=== PATIENT | male | born 1950 | race Caucasian/White ===

== ENCOUNTER 2016-06-20 11:31 | Emergency (ER) | payer OTHER, MEDICAID ==
[~2016-06-20] VITALS: Ht 152.4 cm; Wt 110.7 kg
[~2016-06-20 11:31] MED LIST: ECO81 PO; GLIMEPIRIDE4 M1 PO; LISINOPRIL10 MG PO; METFORMIN500 M1 PO; NAPROXEN500 MG PO; SIMVASTATIN10 M1 PO
[2016-06-20 11:37] VITALS: BP 168/93
== END 2016-06-20 16:47 | disposition home or self-care (01) ==
LOC: ED 11:31
DX: L03.211 Cellulitis of face (principal); E11.65 Type 2 diabetes mellitus with hyperglycemia; I10 Essential (primary) hypertension; E78.5 Hyperlipidemia, unspecified; M19.90 Unspecified osteoarthritis, unspecified site; Z79.84 Long term (current) use of oral hypoglycemic drugs
CPT/HCPCS: 82962

== ENCOUNTER 2016-06-22 09:17 | Inpatient (IN) | payer OTHER, MEDICAID ==
[~2016-06-22] VITALS: Ht 175.3 cm; Wt 108.5 kg
[2016-06-22 11:37] LABS: PLATELET COUNT 239 x10^3mcL (130-400)
[2016-06-22 11:39] LABS: BASOPHIL % 0 % (0-2)
[2016-06-22 11:59] LABS: CALCIUM 9.3 mg/dL (8.5-10.1); CARBON DIOXIDE 26.1 mmol/L (21-32); CREATININE SERUM 1.3 mg/dL (0.7-1.3); POTASSIUM SERUM 4.8 mmol/L (3.5-5.1)
[2016-06-22 12:04] LABS: ALBUMIN 3.7 g/dL (3.4-5.0); BILIRUBIN TOTAL 0.4 mg/dL (0.20-1.00); TOTAL PROTEIN, SERUM 7.6 g/dL (6.4-8.2)
[2016-06-22] MEDS ORDERED: METFORMIN HCL1000 MG PO (14:00)
[2016-06-22] MEDS ORDERED: SIMVASTATIN10 M1 PO (14:01)
[2016-06-22] MEDS ORDERED: EC NAPROSYN500 MG PO (14:02)
[2016-06-22] MEDS ORDERED: LISINOPRIL10 MG PO (14:02)
[2016-06-22] MEDS ORDERED: AMARYL4 MG PO (14:03)
[2016-06-22] MEDS ORDERED: ALAWAY10 ML (14:04)
[2016-06-22 14:10] LABS: CHOLESTEROL/HDL RATIO 3.1; T3 TOTAL 0.8 ng/mL
[2016-06-22 15:13] VITALS: BP 132/77
[2016-06-22 15:22] LABS: FREE T4 1.09 ng/dL (0.76-1.46); FREE THYROXINE INDEX 2.7 ug/dL (1.4-4.5); T4(THYROXINE) 7.2 ug/dL (4.7-13.3)
[2016-06-22 15:40] LABS: microscopic required? NO
[2016-06-22 16:28] LABS: UA SPECIFIC GRAVITY 1.015 (1.005-1.035); urine erythrocyte NEGATIVE (NEGATIVE)
[2016-06-22 17:32] VITALS: BP 138/82
[2016-06-22 21:10] VITALS: BP 128/73
[2016-06-23 06:16] VITALS: BP 135/77
[2016-06-23 06:41] LABS: BASOPHIL % 0.2 % (0-2); PLATELET COUNT 233 x10^3mcL (130-400); RED CELL DISTRIBUTION WIDTH 14.3 % (11.5-14.5)
[2016-06-23 06:57] LABS: CALCIUM 8.5 mg/dL (8.5-10.1); CARBON DIOXIDE 25.3 mmol/L (21-32); CHLORIDE SERUM 103 mmol/L (98-107); GFR1 > 60 mL/min; GLUCOSE SERUM 151 mg/dL (74-106); MAGNESIUM 1.8 mg/dL (1.8-2.4); PHOSPHOROUS 3.2 mg/dL (2.5-4.9); POTASSIUM SERUM 4.3 mmol/L (3.5-5.1); SODIUM SERUM 138 mmol/L (136-145)
[2016-06-23 09:17] VITALS: BP 137/81
[2016-06-23 10:12] VITALS: Ht 175.3 cm; Wt 108.5 kg
[2016-06-23 13:50] VITALS: BP 141/80
[2016-06-23 17:15] VITALS: BP 141/81
[2016-06-23 21:20] VITALS: BP 107/58
[2016-06-24 05:35] VITALS: BP 121/70
[2016-06-24 06:06] LABS: BASOPHIL % 0.3 % (0-2); PLATELET COUNT 230 x10^3mcL (130-400); RED CELL DISTRIBUTION WIDTH 13.9 % (11.5-14.5)
[2016-06-24 06:12] LABS: ALBUMIN 3.1 g/dL (3.4-5.0); CALCIUM 8.6 mg/dL (8.5-10.1); CARBON DIOXIDE 24.7 mmol/L (21-32); CHLORIDE SERUM 104 mmol/L (98-107); CREATININE SERUM 0.9 mg/dL (0.7-1.3); GFR1 > 60 mL/min; GLUCOSE SERUM 195 mg/dL (74-106); POTASSIUM SERUM 4.2 mmol/L (3.5-5.1); SODIUM SERUM 137 mmol/L (136-145)
[2016-06-24 09:39] VITALS: BP 124/79
[2016-06-24 18:48] VITALS: BP 151/85
[2016-06-24 21:46] VITALS: BP 146/89
[2016-06-25 05:35] VITALS: BP 135/73
[2016-06-25 06:54] LABS: BASOPHIL % 0.2 % (0-2); PLATELET COUNT 249 x10^3mcL (130-400)
[2016-06-25 06:57] LABS: RED CELL DISTRIBUTION WIDTH 14.6 % (11.5-14.5)
[2016-06-25 07:06] LABS: CALCIUM 8.7 mg/dL (8.5-10.1); CARBON DIOXIDE 24.9 mmol/L (21-32); CHLORIDE SERUM 107 mmol/L (98-107); CREATININE SERUM 0.9 mg/dL (0.7-1.3); GFR1 > 60 mL/min; GLUCOSE SERUM 148 mg/dL (74-106); POTASSIUM SERUM 4.2 mmol/L (3.5-5.1); SODIUM SERUM 141 mmol/L (136-145)
[2016-06-25 07:09] LABS: ALBUMIN 3.1 g/dL (3.4-5.0)
[2016-06-25 08:58] VITALS: BP 131/76
[2016-06-25 13:04] VITALS: BP 152/82
[2016-06-25] MEDS ORDERED: CLINDAMYCIN HC300 MG PO (15:51)
[2016-06-25] MEDS ORDERED: LAC PO (15:52)
[2016-06-25 16:18] VITALS: BP 148/79
[2016-06-25 16:24] VITALS: BP 148/79
== END 2016-06-25 17:30 | disposition home or self-care (01) | DRG 602 ==
LOC: ED 09:17 → DU 13:34 → MU 13:34 → DU 14:51 → MU 06-23 15:53
PROVIDERS: Emergency Medicine; Family Medicine; ADMIT Family Medicine
DX: L03.213 Periorbital cellulitis (principal); N17.0 Acute kidney failure with tubular necrosis; E44.0 Moderate protein-calorie malnutrition; J32.0 Chronic maxillary sinusitis; D64.9 Anemia, unspecified; E11.65 Type 2 diabetes mellitus with hyperglycemia; I16.0 Hypertensive urgency; E78.5 Hyperlipidemia, unspecified; K42.9 Umbilical hernia without obstruction or gangrene; M17.11 Unilateral primary osteoarthritis, right knee; Z79.82 Long term (current) use of aspirin; Z79.84 Long term (current) use of oral hypoglycemic drugs; Z68.35 Body mass index [BMI] 35.0-35.9, adult
CPT/HCPCS: 82962; 83880; 84439; J1956; J2920; J3490; J7030; Q0092; Q9967

== ENCOUNTER 2019-06-03 18:35 | Inpatient (IN) | payer OTHER, MEDICAID ==
[~2019-06-03] VITALS: Ht 175.3 cm; Wt 103.6 kg
[~2019-06-03 18:35] MED LIST changes: +ALAWAY10 ML; +AMARYL4 MG PO; +CLINDAMYCIN HC300 MG PO; +EC NAPROSYN500 MG PO; +LAC PO; +METFORMIN HCL1000 MG PO
--- NOTE | 2019-06-03 19:37 | NUR ---
PT CAME TO ED CO VOMITING SINCE SATURDAY. PT STS HE HAS NO OTHER SYMPTOMS. PT PRESENTED TO THE ED W/LOW BLOOD SUGAR. PT PROVIDED A SANDWICH AND JUICES. WILL CONTINUE TO MONITOR. FRIEND AT BEDSIDE. NO S/S OF DISTRESS. RESP E/U.
[2019-06-03 20:48] LABS: BASOPHIL % 0.1 % (0-2); PLATELET COUNT 212 x10^3mcL (130-400); T3 TOTAL 0.86 ng/mL
[2019-06-03 20:49] LABS: RED CELL DISTRIBUTION WIDTH 15.8 % (11.5-14.5)
[2019-06-03 21:08] LABS: CK-MB 3.9 ng/mL (0-3.6)
[2019-06-03 21:11] LABS: ALBUMIN 3.4 g/dL (3.4-5.0); ALKALINE PHOSPHATASE 58 U/L (46-116); ALT/SGPT 30 U/L (16-63); AST/SGOT 36 U/L (15-37); BILIRUBIN TOTAL 0.8 mg/dL (0.20-1.00); C REACTIVE PROTEIN 5.9 mg/dL (<=0.9); CALCIUM 7.8 mg/dL (8.5-10.1); CARBON DIOXIDE 20.8 mmol/L (21-32); CHLORIDE SERUM 97 mmol/L (98-107); GLUCOSE SERUM 60 mg/dL (74-106); POTASSIUM SERUM 4.3 mmol/L (3.5-5.1); SODIUM SERUM 135 mmol/L (136-145); TOTAL PROTEIN, SERUM 7.4 g/dL (6.4-8.2)
[2019-06-03 21:33] LABS: FREE T4 1.31 ng/dL (0.76-1.46); FREE THYROXINE INDEX 3.2 ug/dL (1.4-4.5)
--- NOTE | 2019-06-03 21:36 | NUR ---
PT RESTING COMFORTABLY ON GURNEY. BREATHING EVEN UNLABORED. NO NEW EPISODES OF VOMITING.
[2019-06-03 21:41] LABS: CREATININE SERUM 7.8 mg/dL (0.7-1.3); GFR1 7 mL/min
[2019-06-03 21:57] LABS: ERYTHROCYTE SED RATE 31 mm/hr (0-20)
--- NOTE | 2019-06-03 22:16 | NUR ---
REPORT CALLED TO SANTO LUU TO ASSUME CARE OF PT.
--- NOTE | 2019-06-03 22:26 | NUR ---
RECEIVED PT FROM ED VIA [facility] ACCOMPANIED BY RN, EMT AND NIECE. PT ABLE TO AMBULATE TO BED WITH SLOW STEADY GAIT. AOX4, URDU SPEAKING. C/O 04/03 HEADACHE. WILL MEDICATE PER EMAR. EVEN AND UNLABORED RESPIRATIONS ON RA. TELE# 4 PLACED, READING ST 102 WITH BBB. DENIES ANY CHEST PAIN/PRESSURE. IV PATENT AND INTACT RUNNING IVF BOLUS FROM ED. NO C/O N/V OR ABD PAIN AT THIS TIME. C/O DIARRHEA. C/O DIFFICULTY URINATING, WORKMAN IN PLACE, VERY MINIMAL URINE OUTPUT NOTED. C/O MILD GENERALIZED WEAKNESS. ORIENTED TO ROOM AND SURROUNDINGS. INSTRUCTED ON USE OF CALL LIGHT WHEN IN NEED OF ASSISTANCE. BED IN LOWEST POSITION. SIDE RAILS UPX2. CALL LIGHT WITHIN REACH. WILL CONTINUE TO MONITOR.
--- NOTE | 2019-06-03 22:27 | NUR ---
PT TRANSFERRED TO TELE FLOOR ACCOMPANIED BY NURSE AND EMT. NO S/S OF DISTRESS.R FAUSTINO E/U. PT CONNECTED TO MONITOR DURING TRANSFER. IV SITE PATENT, NO S/S OF INFILTRATION.
[2019-06-03 22:28] LABS: UA SPECIFIC GRAVITY >=1.030 (1.005-1.035); microscopic required? YES; urine erythrocyte 3+ (NEGATIVE)
[2019-06-03 23:00] VITALS: BP 121/56
--- NOTE | 2019-06-04 00:09 | NUR ---
BLOOD SUGAR CHECKED: 39, REPEATED 41. D50 ADMINISTER PER PROTOCOL. APPLE JUICE PROVIDED. RECHECKED: 138. PT AOX4. NO ACUTE DISTRESS NOTED. INFLUENZA AND PNEUMOCOCCAL VACCINE ADMINISTERED. C/O HEADACHE MEDICATED PER EMAR. PT TOLERATED WELL. MD MADE AWARE. ORDERS RECEIVED: CHANGE IVF TO D5NS AT 70ML/HR. WILL START IVF ONCE VERIFIED. BED IN LOWEST POSITION. SIDE RAILS UPX2. CALL LIGHT WITHIN REACH. WILL CONTINUE TO MONITOR.
[2019-06-04 05:07] LABS: BASOPHIL % 0.2 % (0-2); PLATELET COUNT 204 x10^3mcL (130-400)
[2019-06-04 05:09] LABS: RED CELL DISTRIBUTION WIDTH 15.4 % (11.5-14.5)
[2019-06-04 05:29] VITALS: BP 111/58
[2019-06-04 05:33] LABS: CALCIUM 7.2 mg/dL (8.5-10.1); CARBON DIOXIDE 22.9 mmol/L (21-32); POTASSIUM SERUM 4.1 mmol/L (3.5-5.1)
--- NOTE | 2019-06-04 06:25 | NUR ---
MADE AWARE OF CRITICAL LABS: GLUCOSE: 51, BUN: 93 CREAT: 8.0. BLOOD SUGAR CHECKED: 43, 39. D50 IVP ADMINISTERED PER PROTOCOL, SNACKS PROVIDED: RECHECKED BS: 131. C/O HEARTBURN, VOMITED X1. MADE AWARE OF LABS VALUES, NO NEW ORDER RECEIVED. PT AOX4. IV PATENT AND INTACT RUNNING D5NS @70. RESTED IN INTERVALS THROUGHOUT THE SHIFT. ALL NEEDS TENDED TO AND MET. ALL SCHEDULED MEDICATIONS GIVEN. ON TELE# [address] 95 WITH BBB. C/O HEARTBURN MEDICATED PER EMAR. WORKMAN IN PLACE, PATENT DRAINING YELLOW URINE VIA GRAVITY, 35ML OUTPUT NOTED. BED IN LOWEST POSITION. SIDE RAILS UPX2. CALL LIGHT WITHIN REACH. WILL ENDORSE TO ONCOMING SHIFT.
--- NOTE | 2019-06-04 07:30 | NUR ---
RECEIVED PATIENT IN BED, AWAKE ALERT AND ORIENTED SPEAKS URUGUAYAN AND A LITTLE GRENADIAN. IVF INFUSING WELL TO LEFT A/C. TELE 4 NSR WITH BBB. RESP EVEN AND UNLABORED, LUNGS CLEAR. R.T. PROTOCOL. PATIENT'S ABD IS VERY LARGE ROUND AND FIRM. BOWEL SOUNDS ACTIVE, LBM WAS YESTERDAY PER PATIENT. PATIENT REFUSING BREAKFAST AT THIS TIME PER PATIENT HE IS NOT HUNGRY. WORKMAN NOTED TO DRAINAGE WITH APPROX 30ML OF YELLOW URINE IN BAG. NO EDEMA NOTED, PULSES PALABLE. MILD GENERALIZED WEAKNESS NOTED.
[2019-06-04 07:46] VITALS: BP 123/67
--- NOTE | 2019-06-04 11:05 | NUR ---
PATIENT IS IN BED, APPEARS LETHARGIC BUT AROUSEABLE. FSBS DONE AND WAS 34, REPEATED AND WAS 37. 1 AMP OF D50 GIVEN BY JOLLY LUU. STAT BLOOD GLUCOSE ORDERED. JOLLY LUU TO NOTIFY DR BELLE. PATIENT HAS D5 NS INFUSING AT 70ML/HR. WILL RECHECK FSBS IN 10-15 MINS. PATIENT APPEARS MORE ALERT SPEECH CLEARER.
--- NOTE | 2019-06-04 11:21 | NUR ---
PATIENT'S PLAN OF CARE WAS DISCUSSED AND REVIEWED WITH POULTRY CUTTER:LATRELL TORRE. I HAVE REVIEWED THE DATA COLLECTION BY POULTRY CUTTER (NAME):LATRELL TORRE. ENTERED ON (DATE/TIME):06/04/19. I CONCUR WITH THE DATA AND ANY EXCEPTIONS OR COMMENTS ARE LISTED BELOW:
--- NOTE | 2019-06-04 11:33 | NUR ---
REPEAT FSBS 15 MINS AFTER 1 AMP OF D50 WAS GIVEN IS NOW 150. DR BELLE TO BE NOTIFIED BY JOLLY LUU. LAB AT BEDSIDE TO DRAW SERUM GLUCOSE AT THIS TIME. WILL CONTINUE TO MONITOR.
[2019-06-04 11:48] VITALS: BP 104/62
--- NOTE | 2019-06-04 11:51 | NUR ---
D10 IVF AT 70ML/HR STARTED AT THIS TIME ORDERED. PATIENT MORE AWAKE AND ALERT, AROUSES EASILY TO NAME. WILL CONTINUE TO MONITOR.
[2019-06-04 15:26] VITALS: BP 141/70
--- NOTE | 2019-06-04 16:45 | NUR ---
PATIENT'S FSBS 50 RECHECK WAS 53. 1 AMP OF D50 BY DON LUU ORDERED. WILL MONITOR. STAT SERUM GLUCOSE ORDERED.
--- NOTE | 2019-06-04 17:26 | NUR ---
PATIENT CONTINUES TO FEEL NAUSEATED, REFUSES TRAYS, DO TO HAVING SMALL CLEAR EMESIS. ABD VERY FIRM AND DISTENDED. URINE OUTPUT <60. DR BELLE NOTIFIED AT THIS TIME OF PATIENT'S LOW FSBS'S AND OF URINE OUTPUT. VISITORS HAVE BEEN INTO VISIT. PATIENT HOB ELEVATED FOR ASPIRATION PRECAUTION.
--- NOTE | 2019-06-04 17:47 | NUR ---
REPEAT FSBS AFTER AMP OF D50 WAS GIVEN IS 115. PATIENT'S WORKMAN CATH EMPTIED AT THIS TIME WELL WITH 70ML YELLOW URINE OUT. PATIENT IS SITTING UP IN BED EATING THE PEACHES ON HIS DINNER TRAY. NO C/O PAIN OR DISCOMFORT. LAB WAS INTO DRAW SERUM GLUCOSE. WILL CONTINUE TO MONITOR.
--- NOTE | 2019-06-04 18:49 | NUR ---
DR ENGLISH HERE TO SEE PATIENT AND CLEARED PATIENT OF 5150 AT THIS TIME.
--- NOTE | 2019-06-04 19:25 | NUR ---
CARE ASSUMED FROM OUTGOING WALLCOVERING TEXTURER. PT RESTING COMFORTABLY IN BED. NO ACUTE DISTRESS NOTED. EVEN AND UNLABORED RESPIRATIONS ON RA. NO C/O SOB. ON TELE# 4 READING SR/ST WITH BBB. IV PATENT AND INTACT RUNNING D10 @70ML/HR. NO C/O PAIN AT THIS TIME. EMESIS BAG NEAR PT, PT C/O OCCASIONAL N/V AND ACID REFLUX/HEARTBURN. WORKMAN IN PLACE, PATENT DRAINING MINIMAL YELLOW URINE VIA GRAVITY. BED IN LOWEST POSITION. SIDE RAILS UPX2. CALL LIGHT WITHIN REACH. WILL CONTINUE TO MONITOR.
[2019-06-04 20:22] VITALS: BP 99/46
--- NOTE | 2019-06-04 20:45 | NUR ---
MADE AWARE, BS:34, RECHECKED 30. D50 IVP CHECKED. RECHECKED: 134. PT AWAKE, ALERT, SLIGHTLY LETHARGIC. DR. BELLE CALLED, UPDATED. RECEIVED ORDERS TO TX TO ICU DUE TO UNSTABLE BLOOD GLUCOSE.
--- NOTE | 2019-06-04 21:10 | NUR ---
RECEIVED PT FROM [facility]. PT TRANSFERRED TO ICU BED 4 WITH NO COMPLICATIONS. PT CONNCETED TO FULL PHILANTHROPY OFFICER/CONTINOUS PULSE OXIMETRY. VITALS READING: HR 92, NIBP 138/68 MAP 88, RR 18, SPO2 98%. PT SR WITH BBB ON MONITOR. PT IS A/OX4. ABLE TO FOLLOW COMMANDS. DENIES ANY AGUILAR/DIZZINESS. BREATHING IS E/U ON RA. LUNGS SOUND CLEAR TO TO BUL AND DIMIN TO BLL. SYMMETRICAL CHEST EXPANSION NOTED. PALPABLE PULSES X4 EXTREMITEIS. SKIN IS WARM AND DRY. LAC IV INTACT/SECURED, D10 INFUSING @ 70 ML/HR WITH NO S/S OF INFILTRATION NOTED. ABD IS SOFT/DISTENDED. BOWEL SOUNDS HYPOACTIVE X4 QUADRANTS. PT STS HE FELT NAUSEAS EARLIER TODAY, BUT DENIES ANY N/V AT THIS TIME. F/C INTACT/SECURED, DRAINING VIA GRAVITY WITH YELLOW COLORED URINE, POOR URINE OUTPUT NOTED. BED IN LOW POSITION. CALL LIGHT IN REACH. WILL CONT TO MONITOR
--- NOTE | 2019-06-04 21:10 | NUR ---
PT TRANFERRED TO ICU VIA BED. PT TOLERATED TRANSFER WELL. SCIENTIFIC ASSOCIATE REMOVED. REPORT GIVEN AND CARE ENDORSE TO PACK PULLER.
--- NOTE | 2019-06-04 22:30 | NUR ---
PT'S O2 SATURATION 91% ON RA. PT PLACED ON 2 LPM NC. SPO2 INCREASED TO 98%. WILL CONT TO MONITOR
[2019-06-04 23:05] VITALS: BP 131/62
--- NOTE | 2019-06-05 01:35 | NUR ---
BLOOD SUGAR CHECKED AND READ 56 AND 55. PT ASYMPTOMATIC. D50 ADMINISTERED PER EMAR.
--- NOTE | 2019-06-05 02:36 | NUR ---
BLOOD SUGAR CHECKED POST D50 ADMINISTRATION AND READ 109. WILL CONT TO MONITOR
[2019-06-05 03:02] VITALS: BP 122/66
--- NOTE | 2019-06-05 05:13 | NUR ---
BLOOD SUGAR 52. PT MEDICATED WITH D50 IVP PER EMAR. WILL CONT TO MONITOR.
[2019-06-05 05:32] LABS: BASOPHIL % 0.2 % (0-2); PLATELET COUNT 186 x10^3mcL (130-400)
[2019-06-05 05:36] LABS: RED CELL DISTRIBUTION WIDTH 16.1 % (11.5-14.5)
--- NOTE | 2019-06-05 05:52 | NUR ---
BLOOD SUGAR 129 POST D50 ADMINISTRATION. WILL CONT TO MONITOR
[2019-06-05 06:06] LABS: ALKALINE PHOSPHATASE 50 U/L (46-116); ALT/SGPT 23 U/L (16-63); AST/SGOT 21 U/L (15-37); BILIRUBIN TOTAL 0.53 mg/dL (0.20-1.00); CARBON DIOXIDE 21.7 mmol/L (21-32); CHLORIDE SERUM 99 mmol/L (98-107); GLUCOSE SERUM 64 mg/dL (74-106); PHOSPHOROUS 4.3 mg/dL (2.5-4.9); POTASSIUM SERUM 3.7 mmol/L (3.5-5.1); SODIUM SERUM 136 mmol/L (136-145); TOTAL PROTEIN, SERUM 6.5 g/dL (6.4-8.2)
[2019-06-05 06:18] LABS: ALBUMIN 2.6 g/dL (3.4-5.0); CREATININE SERUM 9.7 mg/dL (0.7-1.3); GFR1 6 mL/min
--- NOTE | 2019-06-05 07:05 | NUR ---
REPORT GIVEN TO BARBRA LUU FOR CONTINUITY OF CARE. ALL QUESTIONS/CONCERNS ADDRESSED. ENDORSING ALL CARE
[2019-06-05 07:25] VITALS: BP 111/63
--- NOTE | 2019-06-05 07:25 | NUR ---
PATIENT AWAKE AND ORIENTED TO PERSON, PLACE AND TIME. PATIENT DENIES NAUSEA/VOMITING, PAIN OR SHORTNESS OF BREATH AT THIS TIME. IVF D10 AT 70 ML/HR VIA IV SITE AT [facility]. TELE # 4 SHOWS NORMAL SINUS RHYTHMS WITH EPISODES OF SINUS TACHYCARDIA. HR IN 100S. WORKMAN CATH TO GRAVITY DRAINING SCANT AMOUNT OF YELLOW URINE IN THE TUBE. CALL LIGHT WITHIN REACH. SIDE RAILS UP X3. BED IS AT LOWEST POSITION.
--- NOTE | 2019-06-05 08:09 | NUR ---
PATIENT'S BEDSIDE GLUCOSE 64 AFTER EATING BREAKFAST. ADMINISTER 1 AMP D50 IVP. WILL REASSESS.
--- NOTE | 2019-06-05 08:30 | NUR ---
REASSESSED PATIENT'S BEDSIDE GLUCOSE AT 124. NO FURTHER INTERVENTION NEEDED. WILL CONTINUE TO MONITOR CLOSELY.
--- NOTE | 2019-06-05 09:10 | NUR ---
DR. ECKERT WAS AT BEDSIDE EXAMING THE PATIENT.
--- NOTE | 2019-06-05 09:25 | NUR ---
DR. SAENZ WAS AT BEDSIDE EXPLAINING THE CECIL CATHETER PLACEMENT TO THE PATIENT AND HIS NIECE, ALON GONZALEZ. CONCERNS WERE ADDRESSED AND DR. SAENZ OBTAINED THE CONSENT FOR CECIL CATH PLACEMENT.
--- NOTE | 2019-06-05 09:35 | NUR ---
IV SITE AT LAC LEAKING. THE HEPLOCK WAS REMOVED WITH CATH INTACT. NEW HEPLOCKS WERE INSERTED TO RIGHT WRIST WITH #22G AND LEFT WRIST WITH #20G.
--- NOTE | 2019-06-05 10:00 | NUR ---
DR. BELLE IS IN TO SEE THE PATIENT. UPDATE PROVIDED TO THE DOCTOR.
[2019-06-05 11:00] VITALS: BP 121/62
--- NOTE | 2019-06-05 14:35 | NUR ---
TELEPHONED DR Marquez'S CELL PHONE TO INQUIRE WHEN HE WOULD BE COMING TO PLACE HEMODIALYSIS CATHETER. MEDICAL STUDENT WHO ANSWERED HIS TELEPHONED SPOKE WITH HIM AND HE SAID HE WOULD COME TO PLACE THE CATHETER SHORTLY. I INFORMED MEDICAL STUDENT THAT I WOULD CALL DR Marquez BACK IF HE DID NOT ARRIVE WITHIN THE NEXT COUPLE OF HOURS (PATIENT'S BUN AND CREAT. IS ELEVATED AND PATIENT HAS PERIODS OF CONFUSION) TO OBTAIN AN ETA.
[2019-06-05 15:14] VITALS: BP 127/66
--- NOTE | 2019-06-05 15:58 | NUR ---
REPORT GIVEN TO ALON Kirby RN., AND ENDORSE CARE ACCORDINGLY.
--- NOTE | 2019-06-05 16:14 | NUR ---
PATIENT PLACED ON REGULAR DIET UNTIL BEDSIDE GLUCOSE IMPROVES. LAST BS GLUCOSE 58.
--- NOTE | 2019-06-05 16:29 | NUR ---
BS RECHECKED PER PROTOCOL, BS114 AT THIS TIME. PT ASYMPTOMATIC
--- NOTE | 2019-06-05 16:42 | NUR ---
SPOKE WITH DR BLANK REGARDING ETA. DR BLANK STATED HE WOULD NOT BE ABLE TO GET HER TO PLACE CATHETER UNTIL LATE THIS EVENING. TELEPHONED DR BELLE AND PROVIDED INFORMATION. OKAY TO PLACE CONSULT FOR WHOMEVER CAN PLACE CATHETER.
--- NOTE | 2019-06-05 18:02 | NUR ---
BS 106, PT EATING DINNER AT THIS TIME. PT C/O AGUILAR 09/01, MEDICATED PER EMAR. WILL CONT TO MONITOR
--- NOTE | 2019-06-05 19:00 | NUR ---
RECEIVED CHANGE OF [facility] REPORT FROM CLEMENTINA LUU. PT AOX4 ABLE TO MAKE NEEDS KNOWN. PT ON ROOM AIR, NO S/SX OF DISTRESS. PERIPHERAL IV TO RW AND LW INTACT, PATENT, DRESSING CDI. WORKMAN DRAINING VIA GRAVITY. PT BEDFAST WITH GENERALIZED WEAKNESS. SKIN INTACT. PT HAS UMBILICAL HERNIA. PT ON CONTINOUS CARDIAC AND PULSE OX MONITOR. WILL CONTINUE TO MONITOR.
--- NOTE | 2019-06-05 19:12 | NUR ---
CARE ENDORSED TO TOBI LUU. UPDATED ON PTS CURRENT STATUS. QUESTIONS ANSWERED
[2019-06-05 19:15] VITALS: BP 129/69
--- NOTE | 2019-06-05 20:30 | NUR ---
PT BLOOD SUGAR IS 56. GAVE 50ML OF D50 AND A CUP OF ORANGE JUICE. WILL CONTINUE TO MONITOR.
--- NOTE | 2019-06-05 20:46 | NUR ---
RECEIVED CHANGE OF [facility] REPORT FROM CLEMENTINA LUU. PT AOX4 ABLE TO MAKE NEEDS KNOWN. PT ON ROOM AIR, NO S/SX OF DISTRESS. PERIPHERAL IV TO RW AND LW INTACT, PATENT, DRESSING CDI. WORKMAN DRAINING VIA GRAVITY. PT BEDFAST WITH GENERALIZED WEAKNESS. SKIN INTACT. PT HAS UMBILICAL HERNIA. PT ON CONTINOUS CARDIAC AND PULSE OX MONITOR. WILL CONTINUE TO MONITOR.
--- NOTE | 2019-06-05 21:21 | NUR ---
RT AT BEDSIDE GIVING BREATHING TX.
--- NOTE | 2019-06-05 21:30 | NUR ---
DR. BLANK AT BEDSIDE PERFORMING ULTRASOUND GUIDED CECIL CATHETER PLACEMENT ON RIJ. HEALTH NAVIGATOR AND RN AT BEDSIDE. CONSENT SIGN, TIME-OUT BEFORE PROCEDURE DONE. NO S/SX OF DISTRESS FROM PATIENT. HEPARIN 5000 UNIT AND LIDOCAINE GIVEN TO PATIENT FOR THE PROCEDURE. POST PROCEDURE, PATIENT DISPLAY NO S/SX OF DISTRESS. WILL CONTINUE TO MONITOR.
--- NOTE | 2019-06-05 21:49 | NUR ---
X-RAY TECH AT BEDSIDE. DR. BLANK STATES THAT CECIL CATH OK TO USE. WILL CALL DIALYSIS. CONSENT FOR DIALYSIS SIGN.
--- NOTE | 2019-06-05 22:05 | NUR ---
DIALYSIS NURSE (BORIS RN) AT BEDSIDE CONDUCTING DIALYSIS. NIBP OF 142/73 (82), HR OF 96, RR: 21, O2: 97%
--- NOTE | 2019-06-05 22:30 | NUR ---
PT THREW UP 400ML OF EMESIS WHILE AT DIALYSIS. GAVE PATIENT ZOFRAN ORDERED. WILL CONTINUE TO MONITOR.
[2019-06-05 23:28] VITALS: BP 137/75
--- NOTE | 2019-06-06 01:03 | NUR ---
PER DIALYSIS NURSE (BORIS), DIALYSIS TOOK OUT 1L OF FLUID OUT. PT STATES HE FELT NAUSEOUS AND WANTS TO VOMIT. WILL CONTINUE TO MONITOR.
--- NOTE | 2019-06-06 01:15 | NUR ---
PT THREW UP ABOUT 200ML. THE VOMIT IS GREENISH COLOR. PT STATES THAT HE FELT BETTER NOW THAT HE THREW UP. HE STATES HE DOES NOT FEEL NAUSEATED AT THE MOMENT
[2019-06-06 03:22] VITALS: BP 120/65
[2019-06-06 05:05] LABS: BASOPHIL % 0.2 % (0-2); PLATELET COUNT 172 x10^3mcL (130-400)
[2019-06-06 05:10] LABS: RED CELL DISTRIBUTION WIDTH 15.9 % (11.5-14.5)
[2019-06-06 05:30] LABS: BILIRUBIN TOTAL 0.42 mg/dL (0.20-1.00); CALCIUM 8.2 mg/dL (8.5-10.1); CARBON DIOXIDE 22.5 mmol/L (21-32); POTASSIUM SERUM 3.9 mmol/L (3.5-5.1); TOTAL PROTEIN, SERUM 6.5 g/dL (6.4-8.2)
[2019-06-06 05:32] LABS: ALBUMIN 2.5 g/dL (3.4-5.0)
[2019-06-06 06:06] LABS: CALCIUM 7.7 mg/dL (8.6-10.2); PTH INTACT 95 pg/mL (15-65)
--- NOTE | 2019-06-06 07:15 | NUR ---
GAVE CHANGE OF SHIFT REPORT TO BRITTANEY LUU. QUESTIONS ANSWERED, ENDORSE CARE TO MORNING SHIFT RN.
[2019-06-06 07:45] VITALS: BP 115/76
--- NOTE | 2019-06-06 08:00 | NUR ---
PATIENT'S NIECE AT BEDSIDE TO VISIT WITH PATIENT. UPDATES PROVIDED BY NURSING.
[2019-06-06 11:34] VITALS: BP 131/80
--- NOTE | 2019-06-06 11:45 | NUR ---
DR BELLE AT BEDSIDE TO ASSESS PATIENT. UPDATES PROVIDED BY NURSING. PATIENT STABLE TO TRANSFER TO TELE.
[2019-06-06 12:11] VITALS: BP 115/76
--- NOTE | 2019-06-06 12:26 | NUR ---
DR SAENZ PRESENT AT BEDSIDE. UPDATED ON PTS CURRENT STATUS. ALL QUESTIONS ANSWERED
--- NOTE | 2019-06-06 12:27 | NUR ---
DR VALE PRESENT AT BEDSIDE TO DISCUSS POC. UPDATED ON PTS CURRENT STATUS. QUESTIONS ANSWERED
--- NOTE | 2019-06-06 14:10 | NUR ---
SPOT CHECKED BS, BS 238. COVERED WITH 4 UN REG INSULIN PER MD ORDER SLIDING SCALE
--- NOTE | 2019-06-06 15:00 | NUR ---
PATIENT TO BE TRANSFERRED TO ROOM 248A. TELEPHONED PATIENT'S NIECE ALON AND PROVIDED HER WITH ROOM NUMBER. PATIENT REMOVED FROM ICU SHOE REPAIRER AND PLACED ON TELE MONITOR. PATIENT ASSISTED TO WHEELCHAIR BY ALON LUU AND ISRAEL LUU AND TRANSFERRED AT THIS TIME.
--- NOTE | 2019-06-06 15:23 | NUR ---
RECIEVED PATIENT FROM ICU NURSE CLEMENTINA. 68 YEAR OLD MALE. PATIENT IS AWAKE ALERT AND ORIENTED X 4. PATIENT PRESENTED TO THE ER ON 06-03-19 FOR NAUSEA AND VOMITING X 2 DAYS. ADMITTED TO [facility] SAME DAY, BUT BLOOD SUGARS UNSTABLE. PATIENT TRANSFERED TO ICU ON 06-04-19 DUE TO UNSTABLE BLOOD SUGARS. WORKMAN IS CURRENTLY IN PLACE DRAINING YELLOW URINE TO GRAVITY. CECIL CATH PLACEMENT AND FIRST DIALYSIS ON 06-05-19 WITH 1 LITER OUT. DANY KNAPP (NEPHRO), AND AKANKSHA ON CASE. ADMITTING DIAGNOSIS IS SEVERE SEPIS, BILATERAL PNEUMONIA. IV TO THE RIGHT WRIST AND LEFT WRIST. TROP NEGATIVE. CHEST XRAY SHOWS BILATERAL PNA. PATIENT GIVEN ZOSYN AND LEVAQUIN IN THE ICU. NO CURRENT REPORT OF PAIN FROM THE PATIENT AT THIS TIME. WILL CONTINUE TO MONITOR.
--- NOTE | 2019-06-06 18:33 | NUR ---
PATIENT CURRENTLY EATING IN BED. NO REPORT OF PAIN AT THIS TIME. LIAM CATH CURRENTLY IN PLACE. IV TO THE RIGHT WRIST CURRENTLY INFUSING ZOSYN. IV TO THE LEFT WRIST SALINE LOCKED. PATIENT CURRENTLY ON TELEMETRY MONITORING. TELE MONITOR NUMBER 17. NO REPORT OF ABD PAIN AT THIS TIME. WILL ENDORSE ALL FURTHER CARE TO THE NOC NURSE.
--- NOTE | 2019-06-06 19:30 | NUR ---
PT RECIEVED FROM DAY NURSE. PT RESTING IN BED AT THIS TIME, DENIES PAIN OR DISCOMFORT. BREATHING E/U ON RA. TELE 17, NSR, DENIES CP, NV, DIZZINESS, OR PALPATATIONS. ABD SOFT AND ROUND, DENIES PAIN TO PALPATION. WORKMAN INTACT AND DRAINING YELLOW LIQUID TO GRAVITY. LIAM CATH IN PLACE TO RIGHT NECK. IV TO RWRIST AND LWRIST CDI. BED AT LOWEST POSITION. CALL LIGHT WITHIN REACH. WILL CONTINUE TO MONITOR.
[2019-06-06 19:35] VITALS: BP 119/66
--- NOTE | 2019-06-06 20:00 | NUR ---
ORDERED TO REMOVE WORKMAN, BLADDER TRAINING INITATED. WILL CONTINUE TO MONITOR.
--- NOTE | 2019-06-07 | NUR ---
PT RESTING IN BED AT THIS TIME, NO S/S OF PAIN OR DISCOMFORT NOTED. BREATHING E/U ON RA. BLADDER TRAINING CONTINUED. WILL CONTINUE TO MONITOR
[2019-06-07 06:18] VITALS: BP 140/71
--- NOTE | 2019-06-07 06:38 | NUR ---
PT RESTING IN BED AT THIS TIME, DENIES PAIN OR DISCOMFORT. BREATHING E/U ON RA. NO S/S OF ACUTE DISTRESS NOTED. ALL NEEDS AND CONCERNS ADDRESSED. WORKMAN REMOVED AT THIS TIME. BED AT LOWEST POSITION. CALL LIGHT WITHIN REACH, WILL CONTINUE TO MONITOR.
[2019-06-07 06:46] LABS: BASOPHIL % 0.2 % (0-2); PLATELET COUNT 184 x10^3mcL (130-400)
[2019-06-07 06:51] LABS: RED CELL DISTRIBUTION WIDTH 15.9 % (11.5-14.5)
--- NOTE | 2019-06-07 07:00 | NUR ---
AAO TIMES 4. TELE # 17 SR. LUNGS CTA. NO SOB. O2 SAT ON RA 96%. BS'S ACTIVE TIMES 4. FU WITH SLIGHT GENERALIZED WEAKNESS. IV SITE RFA CDI. NO SOB. NO C/O PAIN. HEMODIALYSIS PORT TO RIGHT JUGULAR AREA.
[2019-06-07 08:19] LABS: BILIRUBIN TOTAL 0.4 mg/dL (0.20-1.00); CALCIUM 8.2 mg/dL (8.5-10.1); CARBON DIOXIDE 24.8 mmol/L (21-32); POTASSIUM SERUM 4.3 mmol/L (3.5-5.1); TOTAL PROTEIN, SERUM 6.5 g/dL (6.4-8.2)
[2019-06-07 08:23] LABS: ALBUMIN 2.8 g/dL (3.4-5.0)
[2019-06-07 08:24] LABS: CREATININE SERUM 9.2 mg/dL (0.7-1.3)
[2019-06-07 08:54] VITALS: BP 151/72
[2019-06-07 11:54] VITALS: Ht 175.3 cm; Wt 103.6 kg
[2019-06-07 12:31] VITALS: BP 154/72
[2019-06-07 16:05] VITALS: BP 139/70
--- NOTE | 2019-06-07 18:11 | NUR ---
AAO TIMES 4. TELE # 17 SR. NO C/O PAIN. NO SOB. CECIL CATH RIGHT SIDE OF NECK CDI. HE HAD A TOTAL OF 2L OUT TODAY DURING HD. IV SITES CDI. COOPERATIVE.
--- NOTE | 2019-06-07 19:30 | NUR ---
PT IS A/O x4. MED SURG. DENIES ANY CHEST PAIN OR PRESSURE. NO SIGN OF DISTRESS NOTED. ON RA, DENIES ANY SOB. EQUAL CHEST RISE AND FALL. BOWEL SOUNDS ARE PRESENT. UMBILICAL LUMP NOTED, PER PT IT IS A HERNIA. ABD ROUND AND SEMI FIRM. SKIN INTACT. DENIES ANY PAIN AT THIS TIME. IV ON R WRIST INTACT. FLUIDS RUNNING ON L WRIST INTACT AND PATENT. CECIL CATH NOTED ON RIJ. INTACT AND CLEAN. BED IS AT LOWEST SETTING. CALL LIGHT WITHIN REACH. WILL CONTINUE TO MONITOR.
[2019-06-07 20:24] VITALS: BP 128/69
[2019-06-08 04:32] VITALS: BP 129/70
[2019-06-08 06:26] LABS: BASOPHIL % 0.4 % (0-2); PLATELET COUNT 173 x10^3mcL (130-400)
--- NOTE | 2019-06-08 06:32 | NUR ---
PT IS RESTING IN BED WITH BOTH EYES CLOSED. BREATHING EVEN AND UNLABORED. NO SIGN OF DISTRESS NOTED. EQUAL CHEST RISE AND FALL. NO ACUTE EVENT OCCURED AT NIGHT. BED IS AT LOWEST SETTING. CALL LIGHT WITHIN REACH. WILL ENDORSE TO AM NURSE.
[2019-06-08 06:54] LABS: CALCIUM 8.4 mg/dL (8.5-10.1); CARBON DIOXIDE 23.1 mmol/L (21-32)
[2019-06-08 07:00] LABS: CREATININE SERUM 7.6 mg/dL (0.7-1.3)
--- NOTE | 2019-06-08 07:40 | NUR ---
RECEIVED PT IN BED A/A/OX4 DENIES AGUILAR. RIKarina CECIL CATH IN PLACE. RESP EVEN AND UNLABORED WITH CLEAR NS BILAT. DENIES ANY SOB/CP/PRESSURE AT THIS TIME. ABD ROUND, OBESE, SLIGHTLY DISTENDED WITH ACTIVE BS X4. DENIES ANY EPISODES OF N/V OVERNIGHT. VOIDING SMALL AMOUNT OF URINE, WITH NEW ONSER ESRD WITH HD TX. LAST COMPLETED LAST NIGHT. PT WILL HAVE TUNNELED CATH PLACEMENT THIS AM, HAS BEEN KEPT NPO OVERNIGHT. AMBULATORY WITH SUPERVISION AND ASSISTANCE TO GET OOB. CALL LIGHT IN REACH NEEDS ATTENDED TO.
[2019-06-08 09:08] VITALS: BP 129/59
--- NOTE | 2019-06-08 10:00 | NUR ---
PT TAKEN DOWN TO OR FOR PROCEDURE. PT LEFT FLOOR FREE OF ANY DISTRESS. OR CALLED AND MADE AWARE THAT PT HAD LEAKING IV AND 2ND IV HAD BLOWN, PER TEAM THEY WILL INSERT NEW IV IN OR.
--- NOTE | 2019-06-08 12:40 | NUR ---
PT BACK FROM OR S/P TUNNEL CATH PLACEMENT TO RT CHEST WALL. SITE CDI, NO S/SX OF BLEEDING NOTED. PT DENIES ANY DISCOMFORT. HANNAH JACOB WAS D/C IN OR, SONIAG IN PLACE CDI. NO S/SX OF ACTIVE BLEEDING.
[2019-06-08 14:00] LABS: calcium (part of PTHIC) 7.7 mg/dL
--- NOTE | 2019-06-08 15:32 | NUR ---
PT RESTING AT THIS TIME. DENIES ANY DISCOMFORT.
[2019-06-08 17:15] VITALS: BP 120/59
--- NOTE | 2019-06-08 18:20 | NUR ---
PT RESTING AT THIS TIME. DENIES ANY DISCOMFORT. CALL LIGHT IN REACH NEEDS ATTENDED TO.
--- NOTE | 2019-06-08 19:33 | NUR ---
RECIEVED PT FROM PREVIOUS SHIFT NURSE JUS CUENCA. PT RESTING IN BED, AOX4, EMIRATI SPEAKING ONLY, SPEECH CLEAR, NO FACIAL DROOPING NOTED, DENIES AGUILAR,N/V, OR PAIN AT THIS MOMENT. RR EVEN AND UNLABORED ON RA, CHEST RISING EQUALLY, DENIES SOB OR DIFFICUTLY BREATHING, HOB ELEVATED. NO SIGNS OF ACUTE DISTRESS NOTED.IV RW WNL, D5 NS0.45 RUNNING AT 20ML/HR. PT HAS A TUNNELED PERMACATHETER R CHEST DRESSING, CDI. BED IN LOWEST POSITION AND CALL LIGHT WITHIN REACH. WILL CONTINUE TO MONITOR.
[2019-06-08 20:32] VITALS: BP 129/72
--- NOTE | 2019-06-08 22:07 | NUR ---
PT PPD READ NEGATIVE ON L ARM. WILL CONTINUE TO MONITOR.
--- NOTE | 2019-06-09 01:33 | NUR ---
PT RESTING IN BED. RR EVEN AND UNLABORED ON RA, CHEST RISING EQUALLY. NO SIGNS OF ACUTE DISTRESS NOTED. BED IN LOWEST POSITION AND CALL LIGHT WITHIN REACH. WILL CONTINUE TO MONITOR.
[2019-06-09 05:27] VITALS: BP 136/66
--- NOTE | 2019-06-09 05:57 | NUR ---
PT RESTING IN BED, AOX4, SPEECH CLEAR, DENIES AGUILAR,N/V, OR PAIN AT THIS MOMENT. RR EVEN AND UNLABORED ON RA, CHEST RISING EQUALLY, DENIES SOB OR DIFFICULTY BREATHING, NO SIGNS OF AUCTE DISTRESS NOTED. IV RW WNL, D50.45 N AND ZOSYN RUNNING AT THE MOMENT. BED IN LOWEST POSITION AND CALL LIGHT WITHIN REACH. WILL CONTINUE TO MONITOR AND ENDORSE CARE TO ONCOMING SHIFT NURSE.
--- NOTE | 2019-06-09 07:30 | NUR ---
RECEIVED PT IN BED A/A/OX4 DENIES AGUILAR. RESP EVEN AND UNLABORED WITH CLEAR BS BILAT. DENIES ANY SOB/CP/PRESSURE AT THIS TIME. NO EDEMA NOTED WITH IV TO RW. ABD ROUND, OBESE, NONTENDER WITH ACTIVE BS X4. DENIES ANY N/V AT THIS TIME. VOIDING FREELY. ESRD WITH HD SCHEDULED TODAY, RCW TUNNELLED CATH IN PLACE. NO S/SX OF BLEEDING NOTED. AMBULATORY WITH SUPERVISION REQUIRES ASSISTANCE TO GET OOB. CALL LIGHT IN REACH NEEDS ATTENDED TO.
[2019-06-09 08:52] VITALS: BP 119/70
[2019-06-09 12:07] VITALS: BP 143/70
--- NOTE | 2019-06-09 12:50 | NUR ---
MADE AWARE BY HD NURSE THAT HE HAD TO STOP HD D/T TUNNELLED CATH TO PROVING ADEQUATE SPEED FOR BLOOD TRANSFER AND HAD INCREASE RISK FOR CLOTTING. ACCORDING TO DIETER HD NURSE HE SPOKE WITH DR. TOMEKA FERNANDES ISSUE AND RECOMENDED FOR CATH TO BE ADJUSTED. OR CALLED SPOKE WITH RN WITH CASE AT 1PM. LEFT MESSAGE TO HAVE MD EVAL PT OR CALL STATION TO MAKE HIM AWARE THAT PT REQUIRED FIDEL
--- NOTE | 2019-06-09 14:10 | NUR ---
CALLED OR SPOKE WITH NURSE WAS MADE AWARE THAT DR. BLANK WAS NOTIFIED ON ARRIVAL AND WAS AWARE OF NEED TO EVAL CATHETER STATED MD CURRENTLY ATTENDING SX CASE AND HE WILL BE REMINDED UPON COMPLETION. AWAITING MD CALL BACK. CONT TO MONITOR.
--- NOTE | 2019-06-09 14:22 | NUR ---
PHYSICAL THERAPY DAILY NOTES CO-SIGN All documentation done by the [employer] Operations Supervisor for 06/09/19 has been reviewed. I agree with the documentation. Reviewed/Co-Signed by: Kaelyn Zarate PT Documentation Done by:FROY HILARIO SPT
--- NOTE | 2019-06-09 15:17 | NUR ---
DR. BLANK AT BEDSIDE EVALUATED PT. STATED HE WANTED HD TO BE ATTEMPTED ONCE MORE ON THE TUNNELED CATH TOMORROW AND IF IT DOES NOT WORK HE WILL REPLACE OR ADJUST LINE.WAS NOTIFIED BY DR. BLANK AT THE STATION THAT HE SPOKE WITH DR. ECKERT AND MADE HIM AWARE TO JUST TRY HD AGAIN TOMORROW BEFORE ANY ADJUSTMENTS ARE MADE. WILL AWAIT FURTHER ORDERS. CONT TO MONITOR.
--- NOTE | 2019-06-09 15:42 | NUR ---
Initial Nutrition Assessment: Benjy Marcos - 68yo M - Rm. 253A Dx: Severe Sepsis, Bilateral PNA, Hypoglycemia PMHx: DM, HTN, Elevated Cholesterol, Arthritis PSHx: n/a Labs: Glu 143 (H), BUN 76.0 (H), Creat 7.6 (H), Ca 8.4 (L), A1C 6.4 (H), Alb 2.8 (L), H/H 12.7 / 38 (L), Meds: Heparin Sodium, Nepro-Maricruz, Protonoix, Lactinex, Levaquin (ATB), Zosyn (ATB) PRN: Zofran, Tylenol, Phenergan, Humulin, [place], Morphine Diet: Renal + CCHO 60gm PO intake since admission: 50-100% with an average of 75% x 4 meals. Needs not met with intake of ~1315kcal and 38g protein. Ht: 69" Wt: 231.6#/105kg BMI: 33.7 kg/m^2 Bed scale: n/a IBW: 160#/73kg %IBW: 145% UBW: unable to assess - pt refused. Age: 68yo Food Allergies: Unable to assess, pt refused interview. Skin condition: Intact Dontrell: 18 Edema: No edema noted. Last BM: 06/07/19 Per H&P: 68 yo male h/o HTN, DM, Dyslipidemia. C/O N/V Diarrhea ongoing x 3 to 4 days. He became weak and lethargic w/ generalized weakness. He was seen and evaluated at the ED and was found to be in significant kidney failure. He also had signs OG Rhabdo and Pneumonia, admitted to Tele. RD Note (06/08): Visited pt by bedside. Pt had just started with dialysis with nurse along bedside. Pt refused to talk with another personnel. Provided nutrition education of Renal + CCHO diet and patient acknowledged the handouts left by bedside. Talked to RN and was notified that pt is a new dialysis pt. Per RN, he has been doing good and has no complaint of N/V/D/C. Pt was nauseated after dialysis Saturday, however, no other episodes of nausea. Per RN, pt has been eating good and able to tolerate foods well with no chewing or swallowing problems. Problem with: N/V/D/C: Per RN, no. Problems with: Chewing: Per RN, no. Swallowing: Per RN, no. Current appetite: Per RN, good with good POs. Recent wt change: Unable to assess, pt refused interview %wt change: n/a Vitamin/Supplement use: Unable to assess, pt refused interview Special diet at home: Unable to assess, pt refused interview Physical activity: Unable to assess, pt refused interview Nutrition education given (specify specific nutrition education and handout given): Left Nutrition education handouts of Renal + CCHO diet because pt refused interview. Pt acknowledged the handouts provided. Food-drug interactions? Education given? n/a Estimated Nutritional Needs Based on adjusted body weight (81kg) Energy: 2024 - 2429 kcal/day (25-30kcal/kg) Protein: 97 - 113 g/day (1.2-1.4g/kg) Fluid: 2024 - 243 mL/day (1 mL/kcal) Nutrition Diagnosis: 1.) Increased energy needs r/t increased energy expenditure AEB ESRD and on HD. 2.) Altered nutrition related labs r/t dx of T2DM AEB elevated glucose and A1C. Intervention 1. Recommend continuing CCHO + Renal Diet. 2. Recommend Nepro BID to provide 850kcal and 38.2g protein. Provided recommendation to the doctor and doctor acknowledge. Monitor/Evaluate Goal: PO intake at least 75% of estimated needs Monitor: Weight, PO intake, Labs, GI function F/U in 2-3 days as high risk 06/10 - 06/11. Reviewed by Rogers Schmidt RD.
--- NOTE | 2019-06-09 15:43 | NUR ---
1. Recommend continuing CCHO + Renal Diet. 2. Recommend Nepro BID to provide 850kcal and 38.2g protein.
[2019-06-09 16:18] VITALS: BP 131/73
--- NOTE | 2019-06-09 18:27 | NUR ---
HD NURSE NOTIFIED OF HD ORDER FOR TOMORROW. MADE AWARE THAT DR. BLANK HAD PLACED PT NPO INCASE HE NEED TO REPOSITION CATHETER TOMORROW.
--- NOTE | 2019-06-09 19:35 | NUR ---
RECEIVED PT FROM DAY SHIFT RN. PT AAOX4. DENIES AGUILAR/DIZZINESS. BREATHING EVEN AND UNLABORED ON RA WITH NO SOB NOTED. MED SURG PT, DENIES CHEST PAIN/PRESSURE. IV RW PATENT, INFUSING WELL. RIGHT CHEST TUNNEL CATH, DRESSING CDI. ABD SOFT/DIST, ACTIVE BOWEL SOUNDS. DENIES ABD PAIN/N/V. PT AMBULATORY WITH MINIMAL ASSSIT. CALL BUTTON WITHIN REACH. SAFETY PRECAUTIONS IN PLACE. WILL CONTINUE TO MONITOR.
[2019-06-09 20:51] VITALS: BP 146/43
--- NOTE | 2019-06-10 01:45 | NUR ---
PT RESTING. BREATHING EVEN AND UNLABORED. AROUSABLE TO VOICE. NO ACUTE DISTRESS NOTED. CALL BUTTON WITHIN REACH. SAFETY PRECAUTIONS IN PLACE. WILL CONTINUE TO MONITOR.
--- NOTE | 2019-06-10 05:25 | NUR ---
PT SLEPT ON AND OFF THROGHOUT THE NIGHT WITH NO ACUTE DISTRESS. BREATHING EVEN AND UNLABORED ON RA WITH NO SOB NOTED. IV PATENT, INFUSING WELL WITH NO S/S OF INFILTRATION. PT AMBULATORY WITH BRP, STEADY GAIT. PT MEDICATED PER EMAR. CALL BUTTON WITHIN REACH. SAFETY PRECAUTIONS IN PLACE. WILL CONTINUE TO MONITOR AND ENDORSE CARE TO DAY SHIFT RN.
[2019-06-10 05:47] VITALS: BP 136/69
[2019-06-10 06:10] LABS: CK-BB 0 % (0); CK-MB 0 % (0-3); CK-MM 100 % (97-100); MACRO TYPE 1 0 % (Not Observed); MACRO TYPE 2 0 % (Not Observed)
--- NOTE | 2019-06-10 07:00 | NUR ---
RECEIVED PT FROM NIGHT RN. AAOX4, CLR SPEECH. DENIES AGUILAR. RES E/U, LUNG SOUNDS CLR ON ROOM AIR. NO SOB NOTED. DENIES CHEST PAIN/PRESSURE. PERIPHERAL PULSES PALPABLE, NO EDEMA NOTED. ABD SOFT WITH ACTIVE BOWEL SOUNDS. NO GI/ COMPLAINT. NO GI/ COMPLAINT. RIJ NOTED, CDI AND PATEND. IV SITE TO RW INFUSING D5 NS 0.45% AT 20ML. NPO SINCE MIDNIGHT PER REPORT. DENIES PAIN/DISCOMFORT AT THIS TIME. BED IN LOWEST POSITION, CALL LIGHT WITHIN REACH. WILL CONTINUE TO MONITOR.
--- NOTE | 2019-06-10 07:32 | NUR ---
PT RESTING. NO ACUTE DISTRESS NOTED. CALL BUTTON WITHIN REACH. SAFETY PRECAUTIONS IN PLACE. ENDORSED CARE TO DAY SHIFT RN, ALL QUESTIONS ADDRESED.
[2019-06-10 08:10] VITALS: BP 113/54
--- NOTE | 2019-06-10 11:53 | NUR ---
SPOKE WITH DR BLANK ON THE PHONE. HE WANTS HD TO BE ATTEMPTED FIRST AND TUNNELED CATH DOES NOT WORK, HE WILL READJUST LINE.
[2019-06-10 12:06] VITALS: BP 126/67
--- NOTE | 2019-06-10 12:59 | NUR ---
HD NURSE AT BEDSIDE. PRINTED AND GAVE CBC, BMP, AND CONSENT TO HD RN.
--- NOTE | 2019-06-10 14:00 | NUR ---
AT 1300 - HD RN REPORTED THAT TUNNELED CATH DOES NOT WORK AT 1330 - CALLED DR BLANK REGARDING TUNNELED CATH NOT WORKING AFTER ATTEMPTING HD. DR. BLANK WILL READJUST OR REPLACE LINE TOMORROW AND TO KEEP PT NPO AT MIDNIGHT.
[2019-06-10 16:17] VITALS: BP 152/86
--- NOTE | 2019-06-10 19:25 | NUR ---
RECEIVED REPORT FROM OMAR LUU. PT IS AAOX4 AND RESTING COMFORTABLY IN BED AT THIS TIME WITH EYES OPEN. PT IS AAOX4 AND MONTENEGRIN SPEAKING. PT DENIES AGUILAR/DIZZINESS. PT IS MED-SURG AND DENIES CP/PRESSURE. PT PULSES PALPABLE AND CAP REFILL <3 SEC. PT LUNG SOUNDS CTA ON RA AND BREATHING EVEN AND UNLABORED. PT DENIES SOB OR RESP DISTRESS. PT ABD SOFT AND ROUND WITH BOWEL SOUNDS ACTIVE X4. PT DENIES N/V/C/D. PT VOIDS FREELY WITH BRP. PT HAS GENERALIZED WEAKNESS, BUT IS AMBULATORY. PT SKIN INTACT. PT IV PATENT AND INTACT. D5/0.45% NS INFUSING WELL AT 20ML/HR. ALL NEEDS MET AT THIS TIME. CALL LIGHT WITHIN REACH. BED IN LOWEST POSITION. SIDE RAILS X2 UP. WILL CONTINUE TO MONITOR.
--- NOTE | 2019-06-10 19:32 | NUR ---
NO SIGNIFICANT CHANGES NOTED. WILL ENDORSE CARE TO NEXT SHIFT.
[2019-06-10 21:13] VITALS: BP 134/67
--- NOTE | 2019-06-10 23:59 | NUR ---
PT RESTING COMFORTABLY IN BED WITH EYES CLOSED. NO ACUTE DISTRESS NOTED. BREATHING EVEN AND UNLABORED. IVF INFUSING WELL AT 20ML/HR. CALL LIGHT WITHIN REACH. BED IN LOWEST POSITION. SIDE RAILS X2 UP. WILL CONTINUE TO MONITOR.
--- NOTE | 2019-06-11 01:01 | NUR ---
PT RESTING COMFORTABLY WITH EYES CLOSED. NO ACUTE DISTRESS NOTED AT THIS TIME. PT BREATHING EVEN AND UNLABORED. IVF INFUSING WELL AT THIS TIME. CALL LIGHT WITHIN REACH. BED IN LOWEST POSITION. SIDE RAILS X2 UP. WILL CONTINUE TO MONITOR.
--- NOTE | 2019-06-11 02:33 | NUR ---
PT RESTING COMFORTABLY WITH EYES CLOSED, EASILY AROUSABLE. NO ACUTE DISTRESS NOTED. PT BREATHING E/U. CALL LIGHT WITHIN REACH. BED IN LOWEST POSITION. SIDE RAILS X2 UP. WILL CONTINUE TO MONITOR.
--- NOTE | 2019-06-11 03:20 | NUR ---
PT AWAKE AND SITTING ON SIDE OF BED STRETCHING OUT HIS BLE. PT DENIES ANY ACUTE DISTRESS AT THIS TIME. ALL NEEDS MET. D5/0.45% NS INFUSING WELL AT 20ML/HR. CALL LIGHT WITHIN REACH. BED IN LOWEST POSITION. SIDE RAILS X2 UP. WILL CONTINUE TO MONITOR.
[2019-06-11 05:18] VITALS: BP 155/77
[2019-06-11 05:42] LABS: CALCIUM 8.8 mg/dL (8.5-10.1); CARBON DIOXIDE 26.3 mmol/L (21-32); CREATININE SERUM 3.7 mg/dL (0.7-1.3); POTASSIUM SERUM 4.5 mmol/L (3.5-5.1)
[2019-06-11 06:29] LABS: BASOPHIL % 0.2 % (0-2); PLATELET COUNT 220 x10^3mcL (130-400)
[2019-06-11 06:48] LABS: RED CELL DISTRIBUTION WIDTH 15.7 % (11.5-14.5)
--- NOTE | 2019-06-11 07:11 | NUR ---
PT RESTED COMFORTABLY IN INTERVALS THROUGHOUT THE NIGHT, BUT EASILY AROUSABLE. PT COMPLIED WITH NURSING CARE THROUGHOUT THE SHIFT. NO ACUTE DISTRESS NOTED. ALL QUESTIONS AND CONCERNS ADDRESSED. CALL LIGHT WITHIN REACH. BED IN LOWEST POSITION. SIDE RAILS X2 UP. WILL ENDORSE TO DAY SHIFT NURSE. WILL CONTINUE TO MONITOR.
--- NOTE | 2019-06-11 07:30 | NUR ---
PT LEFT FOR OR AT THIS TIME. ENDORSED CARE TO DILCIA LUU. ALL QUESTIONS AND CONCERNS ADDRESSED.
--- NOTE | 2019-06-11 08:08 | NUR ---
AAO TIMES 4. MED SURG PATIENT. LUNGS CTA. NO SOB. O2 SAT ON RA 99%. BS'S ACTIVE TIMES 4. FU, BRP SELF. NPO FOR HD PORT INSERTION. PERIPHERAL PULSES PALPABLE. NO EDEMA. IV SITE CDI. COOPERATIVE.
[2019-06-11 13:04] VITALS: BP 121/73
--- NOTE | 2019-06-11 14:41 | NUR ---
1. Recommend continue CCHO 60, renal diet 2. Recommend continue Nepro BID for additional 850kcal and 38.2g protein.
--- NOTE | 2019-06-11 14:41 | NUR ---
Follow-up Nutrition Assessment: 253A EMELY YOUSSEF 68M HR FU Dx: Severe sepsis, Bilateral PNA, Hypoglycemia PMHx: DM, HTN, Elevated cholesterol, arthritis Labs: (06/10) Glu 249H (A1C 6.4H), BUN 72H, Cr 3.7H Meds: D5%, D 50%, Humulin, Lactinex, Levaquin, Nepro-yoana, Phenergan, protonix, Zosyn Diet: CCHO renal diet with Nepro BID PO Intake: (06/09) L: 85%, D: 90% Weights: (06/10) 103.6kg/228lbs, Bed scale: 228.7 lbs (06/08) 105kg/231.6lbs *wt decreased possibly d/t HD I/Os: (06/10) 1190/0 ml = 1190ml, (06/09) 1620/3ml = 1617ml, (06/08) 1380/300ml = 1080ml Skin: skin intact Dontrell: 18 Edema: none noted Last BM: 06/09 Per last visit note (06/08), pt was on HD and refused to talk during bedside assessment. Pt had 75% average PO intake for 4 meals. CCHO 60, renal diet with Nepro BID was recommended. Pt otherwise did not exhibit GI distress and chewing/swallowing difficulties. RD Note (06/10): Patient was lying in bed and awake. RD tried to talk to pt via poultry farmworker phones, but pt was not very responsive to the pigment supplier. Talked to pt's RN to obtain more information, RN denied GI distress and reported that she was not sure about Pt's intake d/t pt being NPO at the moment. Estimated Nutritional Needs Based on adjusted body weight (81 kg) Energy: 7855-9966 kcal/day (25-30 kcal/kg for geriatric maintenance) Protein: 97-113 g/day (1.2-1.4 g/kg for ESRD on HD) Fluid: 5037-3625 mL/day (1 mL/kcal) or per MD Nutrition Diagnosis: (ongoing) 1. Increased energy needs r/t increased energy expenditure a/e/b ESRD and on HD. (ongoing) 2. Altered nutrition related labs r/t dx of T2DM a/e/b elevated glucose and A1C. Intervention: 1. Recommend continue CCHO 60, renal diet 2. Recommend continue Nepro BID for additional 850kcal and 38.2g protein. Monitor/Evaluate: Goal: Have pt meet at least 75% of estimated needs (met, ongoing) Monitor: PO intake, Labs, GI function, Body weight F/U in 3-5 days as moderate risk 06/13-
[2019-06-11 18:15] VITALS: BP 147/79
--- NOTE | 2019-06-11 18:27 | NUR ---
AAO TIMES 4. NO C/O PAIN. NO SOB. IV SITE RIGHT WRIST PATENT, CDI. HAD HD TODAY, 1.5 L OUT. COOPERATIVE. AMBULATORY BRP.
--- NOTE | 2019-06-11 19:35 | NUR ---
PT. AWAKE, ALERT, ORIENTED X4. ABLE TO FOLLOW COMMANDS. BREATH SOUNDS CLEAR THROUGHOUT LUNG SHAHID, RESP. EVEN, UNLABORED. NO SOB NOTED. RT. CHEST WALL DIALYSIS PORT IN-SITU, DRSG CDI. NO EDEMA TO BLE PEDAL PULSES STRONG NICOLE. ABD. SOFT AND ROUND, OBESE. BOWEL SOUNDS ACTIVE. ABD HERNIA NOTED. IV SITE INTACT. CALL LIGHT WITHIN REACH.
[2019-06-11 20:27] VITALS: BP 138/72
--- NOTE | 2019-06-12 00:12 | NUR ---
PT. SLEEPING AT THIS TIME. EYES CLOSED, SNORING. NO COMPLAINTS.
[2019-06-12 05:38] VITALS: BP 140/70
--- NOTE | 2019-06-12 06:36 | NUR ---
PT. WITH UNEVENTFUL NIGHT. NO COMPLAINTS, NO RESP. DISTRESS. IV SITE REMAINS INTACT. CALL LIGHT WITHIN REACH. WILL ENDORSE PT. CARE TO INCOMING NURSE.
[2019-06-12 06:42] LABS: BASOPHIL % 0.3 % (0-2); PLATELET COUNT 181 x10^3mcL (130-400)
[2019-06-12 06:45] LABS: RED CELL DISTRIBUTION WIDTH 15.4 % (11.5-14.5)
[2019-06-12 07:01] LABS: BILIRUBIN TOTAL 0.3 mg/dL (0.20-1.00); CALCIUM 8.5 mg/dL (8.5-10.1); CREATININE SERUM 2.3 mg/dL (0.7-1.3); PHOSPHOROUS 3.9 mg/dL (2.5-4.9); TOTAL PROTEIN, SERUM 7.1 g/dL (6.4-8.2)
[2019-06-12 07:08] LABS: ALBUMIN 2.9 g/dL (3.4-5.0)
--- NOTE | 2019-06-12 07:30 | NUR ---
RECEIVED PT IN NO ACUTE DISTRESS. RESTING IN BED. AAOX4. BREATHING EVEN AND UNLABORED ON RA. RIGHT CHEST WALL TUNNELED CATHETER. VOIDING USING URINAL. IV WITH NO REDNESS OR SWELLING. BED IN LOW POSITION, CALL LIGHT WITHIN REACH. WILL CONTINUE TO MONITOR.
[2019-06-12 07:56] VITALS: BP 151/75
--- NOTE | 2019-06-12 09:35 | NUR ---
IV TO RIGHT WRIST LEAKING, DC'D WITH CATHETER INTACT. NEW IV STARTED ON RFA 22G, WITH GOOD BLOOD RETURN.
[2019-06-12 11:29] VITALS: BP 138/67
--- NOTE | 2019-06-12 11:34 | NUR ---
PT IN NO ACUTE DISTRESS. RESTING IN BED. AAOX4. GETTING HEMODIALYSIS AT THIS TIME, TORCH BURNER AT BEDSIDE. CALL LIGHT WITHIN REACH. WILL CONTINUE TO MONITOR.
--- NOTE | 2019-06-12 14:00 | NUR ---
HEMODIALYSIS FINISHED, 2 LITERS OUT. PT IN NO ACUTE DISTRESS. EATING LUNCH AT THIS TIME. HOB ELEVATED. CALL LIGHT WITHIN REACH. WILL CONTINUE TO MONITOR.
--- NOTE | 2019-06-12 15:10 | NUR ---
SPOKE WITH DR. ECKERT REGARDING PT HAVING 2 LITERS OUT FROM HD TODAY BUT PER CARPET JACK, THE FLOW FROM [facility] IS NOT SMOOTH. PER DR. ECKERT, PT IS OK TO DISCHARGE TODAY HE HAS CHAIR TIME SET UP FOR TOMORROW 0430 AM AT [facility]. ANUPAMA ACCOUNTING OFFICER AWARE.
[2019-06-12 15:11] VITALS: BP 138/67
--- NOTE | 2019-06-12 15:18 | NUR ---
SPOKE TO MALDONADO BULLOCK TO DISCHARGE PATIENT HOME AND TO CONTINUE THE FOLLOWING MEDICATIONS ON DISCHARGE: ASPIRIN 81 MG PO DAILY AND NEPHROVITE 1 TABLET PO DAILY. PATIENT TO FOLLOW-UP W/ HIS PCP WITHIN 1 WEEK. PRIMARY NURSE ARTHUR MADE AWARE OF THE ABOVE.
[2019-06-12] MEDS ORDERED: NEP PO (15:22)
[2019-06-12 16:14] VITALS: BP 138/67
--- NOTE | 2019-06-12 16:36 | NUR ---
PT DISCHARGED TO HOME IN NO ACUTE DISTRESS. IN NO ACUTE DISTRESS. AWAKE, ALERT, AND ORIENTED. VSS. RX GIVEN. ANUPAMA RN PRESENT FOR TRANSLATION. DISCHARGE EDUCATION PROVIDED, PT VERBALIZED UNDERSTANDING. INSTRUCTED PT TO FOLLOW UP WITH PCP. ANUPAMA LUU INFORMED PT NOT TO WET UPPER BODY AREA UNTIL HE RECEIVES EDUCATION FROM DIALYSIS CENTER REGARDING TAKING CARE OF DIALYSIS ACCESS SITE. PT REMINDED OF DIALYSIS CHAIR TIME TOMORROW 06/13/19 0415 AM AT [facility]. PT'S NIECE ALON ESTRADA. IV DC'D WITH CATHETER INTACT. BELONGINGS WITH PT. PAT TARANGO ACCOMPANIED PT TO LOBBY.
== END 2019-06-12 17:13 | disposition home or self-care (01) | DRG 871 ==
LOC: ED 18:35 → MU 21:01 → ED 21:01 → DU 21:01 → IC 06-04 21:17 → DU 06-06 15:16 → MU 06-07 13:46
PROVIDERS: Internal Medicine; Specialist; ADMIT Internal Medicine
PROC: 02HV33Z Insertion of Infusion Device into Superior Vena Cava, Percutaneous Approach (ICD-10-PCS; principal; 2019-06-05)
PROC: B548ZZA Ultrasonography of Superior Vena Cava, Guidance (ICD-10-PCS; 2019-06-05)
PROC: 02PY33Z Removal of Infusion Device from Great Vessel, Percutaneous Approach (ICD-10-PCS; 2019-06-08)
PROC: 02HV33Z Insertion of Infusion Device into Superior Vena Cava, Percutaneous Approach (ICD-10-PCS; 2019-06-08)
PROC: 0JH63XZ Insertion of Tunneled Vascular Access Device into Chest Subcutaneous Tissue and Fascia, Percutaneous Approach (ICD-10-PCS; 2019-06-08)
PROC: B5181ZA Fluoroscopy of Superior Vena Cava using Low Osmolar Contrast, Guidance (ICD-10-PCS; 2019-06-08)
PROC: 0JPV3XZ Removal of Tunneled Vascular Access Device from Upper Extremity Subcutaneous Tissue and Fascia, Percutaneous Approach (ICD-10-PCS; 2019-06-11)
PROC: 0JH63XZ Insertion of Tunneled Vascular Access Device into Chest Subcutaneous Tissue and Fascia, Percutaneous Approach (ICD-10-PCS; 2019-06-11)
PROC: 02HV33Z Insertion of Infusion Device into Superior Vena Cava, Percutaneous Approach (ICD-10-PCS; 2019-06-11)
PROC: B5181ZA Fluoroscopy of Superior Vena Cava using Low Osmolar Contrast, Guidance (ICD-10-PCS; 2019-06-11)
PROC: B548ZZA Ultrasonography of Superior Vena Cava, Guidance (ICD-10-PCS; 2019-06-11)
DX: A41.9 Sepsis, unspecified organism (principal); J18.9 Pneumonia, unspecified organism; G93.41 Metabolic encephalopathy; J96.01 Acute respiratory failure with hypoxia; N18.6 End stage renal disease; E87.2 Acidosis; M62.82 Rhabdomyolysis; N17.9 Acute kidney failure, unspecified; J44.0 Chronic obstructive pulmonary disease with (acute) lower respiratory infection; T82.41XA Breakdown (mechanical) of vascular dialysis catheter, initial encounter; I12.0 Hypertensive chronic kidney disease with stage 5 chronic kidney disease or end stage renal disease; K52.9 Noninfective gastroenteritis and colitis, unspecified; E11.649 Type 2 diabetes mellitus with hypoglycemia without coma; E86.0 Dehydration; M19.90 Unspecified osteoarthritis, unspecified site; E78.5 Hyperlipidemia, unspecified; E78.00 Pure hypercholesterolemia, unspecified; Y83.2 Surgical operation with anastomosis, bypass or graft as the cause of abnormal reaction of the patient, or of later complication, without mention of misadventure at the time of the procedure; Y92.238 Other place in hospital as the place of occurrence of the external cause; R65.20 Severe sepsis without septic shock; E11.22 Type 2 diabetes mellitus with diabetic chronic kidney disease; D63.8 Anemia in other chronic diseases classified elsewhere; E66.01 Morbid (severe) obesity due to excess calories; Z79.82 Long term (current) use of aspirin; Z68.34 Body mass index [BMI] 34.0-34.9, adult; Z79.84 Long term (current) use of oral hypoglycemic drugs
CPT/HCPCS: 36556; 36600; 76001; 82947; 82962; 84439; 87804; 90658; 90732; 97116-GP; A4301; C9113; G0378; J0690; J1644; J1956; J2001; J2250; J2405; J2543; J2550; J3010; J3490; J7030; J7042; Q0092; Q9967

== ENCOUNTER 2019-07-13 19:57 | Emergency (ER) | payer OTHER, MEDICAID ==
[~2019-07-13] VITALS: Ht 167.6 cm; Wt 103.0 kg
[~2019-07-13 19:57] MED LIST changes: +NEP PO
[2019-07-13 22:16] VITALS: BP 145/77
== END 2019-07-13 22:16 | disposition home or self-care (01) ==
LOC: ED 19:57
DX: M54.12 Radiculopathy, cervical region (principal); I10 Essential (primary) hypertension; E11.9 Type 2 diabetes mellitus without complications; E78.00 Pure hypercholesterolemia, unspecified; M19.90 Unspecified osteoarthritis, unspecified site